=== PATIENT | female | born 1960 | race African-American/Black ===

== ENCOUNTER 2019-09-21 12:42 | Emergency (ER) | payer OTHER ==
[~2019-09-21] VITALS: Ht 157.5 cm; Wt 72.3 kg
[~2019-09-21 12:42] MED LIST: INSLAN SQ; INSNOV SQ; PRAV40TA4 PO
[2019-09-21] MEDS ORDERED: LISI-661 PO (12:54)
[2019-09-21] MEDS ORDERED: OMEG-135 PO (12:54)
[2019-09-21] MEDS ORDERED: INSU100I47 SQ (12:54)
[2019-09-21] MEDS ORDERED: ASPI-556 PO (12:54)
[2019-09-21 13:04] VITALS: BP 155/72
[2019-09-21] MEDS ORDERED: ACETAMINOPHEN 500 MG TABLET PO ONE (14:00)
[2019-09-21] MEDS ORDERED: LIDOCAINE 5% TRANSDERMAL PATCH TD ONE (14:00)
== END 2019-09-21 16:23 | disposition home or self-care (01) ==
LOC: EMS 12:49
DX: S83.91XA Sprain of unspecified site of right knee, initial encounter (principal); S80.212A Abrasion, left knee, initial encounter; E11.9 Type 2 diabetes mellitus without complications; E78.00 Pure hypercholesterolemia, unspecified; I10 Essential (primary) hypertension; Z79.84 Long term (current) use of oral hypoglycemic drugs; W17.89XA Other fall from one level to another, initial encounter; Y93.89 Activity, other specified; Y92.89 Other specified places as the place of occurrence of the external cause; Y99.8 Other external cause status